=== PATIENT | male | born 1950 | race Caucasian/White ===

== ENCOUNTER → 2017-09-26 | Outpatient (CLI) | payer OTHER ==
[~2017-09-26] MED LIST: AMLODIPINE BESY10 MG PO; ASPIRIN81 MG PO; ATORVASTATIN CA20 MG PO; BYSTOLIC20 MG; DIGOXIN0.25 MG/5; DIGOXIN250 MCG PO; FINASTERIDE5 MG PO; FISH OIL 1,0001 EAC2 PO; LIPITOR20 MG; LOSARTAN-HCTZ1 EAC1 PO; METFORMIN HCL500 MG PO; METOPROLOL TART50 MG PO; OMEPRAZOLE40 MG PO; PRADAXA150 MG PO; TAMSULOSIN HCL0.4 MG PO; TRIBENZOR 40-11 EACH
--- NOTE | 2017-09-26 16:42 | Diagnostic Imaging Report ---
PROCEDURE:US RETROPERITONEAL ( KIDNEY ). COMPARISON:Patients [facility], US, US RETROPERITONEAL ( KIDNEY )., 09/01/2015, 15:54. INDICATIONS:Followup renal cysts TECHNIQUE: Johnson-scale and color sonographic images of the bilateral kidneys and bladder where obtained in transverse and longitudinal planes. FINDINGS: RIGHT KIDNEY: 13.1 cm, cortex 1.8 cm Cysts: 1.6 x 1.0 x 1.5 cm partially exophytic cystic, anechoic lesion in the interpolar region (previously measured 1.5 x 1.4 x 1.5 cm). Solid masses: None Stones: None Hydronephrosis: None Echogenicity: Normal LEFT KIDNEY: 12.8 cm, cortex 1.6 cm Cysts: 6.0 x 4.3 x 6.3 cm cystic, anechoic lesion in the inferolateral aspect (previously 5.5 x 4.2 x 5.1 cm.). 2.2 x 2.1 x 1.9 cm cystic, anechoic, partially exophytic lesion in the superior-medial aspect (previously measured 1.7 x 1.4 x 1.5 cm). 1.1 x 0.9 x 1.3 cm cystic, anechoic, partially exophytic lesion in the lateral interpolar region, which was not seen on the prior exam. Solid masses: None Stones: None Hydronephrosis: None Echogenicity: Normal Bladder: No focal lesions. Bilateral ureteral jets are identified. Prostate: 4.7 x 3.5 x 4.0 cm (estimated volume 33.5 mL). CONCLUSION: 1. Normal bilateral renal size and echogenicity. No hydronephrosis or obstruction. 2. Slight interval increase in size in 2.2 cm partially exophytic simple cyst in the superior-medial left kidney. A new 1.3 cm simple cyst is noted in the lateral interpolar left kidney. 3. Stable 1.6 and 6.0 cm right and left simple renal cysts, respectively. Daniel Sutherland M.D. Dictated by: Daniel Sutherland M.D. on 09/26/2017 at 16:45 Electronically approved by: Daniel Sutherland M.D. on 09/26/2017 at 16:45
== END ==
LOC: US 14:13
PROVIDERS: ATTEND Urology
DX: N20.0 Calculus of kidney (principal); N28.1 Cyst of kidney, acquired
CPT/HCPCS: 76770

== ENCOUNTER → 2019-04-18 | Outpatient (CLI) | payer MEDICARE, OTHER ==
--- NOTE | 2019-04-18 15:15 | Diagnostic Imaging Report ---
EXAM: Renal Ultrasound INDICATION: ^[id number] ^[id number] ^CYST OF KIDNEY COMPARISON: None TECHNIQUE: Transverse and longitudinal images of the kidneys and bladder were obtained. FINDINGS: Right Kidney: Length: 11.2 cm Appearance: Normal echogenicity. Collecting system: No hydronephrosis Stones: None Cyst/Mass: Lateral midpole simple cyst measures up to 1.6 cm. Left Kidney: Length: 11.3 cm Appearance: Normal echogenicity. Collecting system: No hydronephrosis Stones: None Cyst/Mass: Multiple simple cysts, the largest of which is exophytic at the left lower pole and measures up to 6.6 cm. Bladder: No mass or calculi. Bilateral ureteral jets visualized. Prevoid volume estimate of 152cc. The prostate measures 3.8 x 1.9 x 2.5 cm with estimated volume of 9 cc. 8 mm echogenic focus associated with the prostate likely represents a coarse calcification. IMPRESSION: No hydronephrosis or renal calculi. Bilateral renal cysts as above. Signed by: Haris Barnett MD on 04/18/2019 3:11 PM
== END ==
LOC: US 13:24
PROVIDERS: ATTEND Urology
DX: N28.1 Cyst of kidney, acquired (principal)
CPT/HCPCS: 76770

== ENCOUNTER → 2020-04-17 | Outpatient (CLI) | payer MEDICARE | LOC: US 08:37 | PROVIDERS: ATTEND Urology | DX: N28.1 Cyst of kidney, acquired (principal) | CPT/HCPCS: 76770 ==

== ENCOUNTER → 2021-09-13 | Outpatient (CLI) | payer MEDICARE | LOC: US 13:35 | PROVIDERS: ATTEND Urology | DX: N28.1 Cyst of kidney, acquired (principal) | CPT/HCPCS: 76770 ==

== ENCOUNTER → 2024-06-12 | Outpatient (REF) | payer MEDICARE | LOC: US 09:57 | PROVIDERS: ATTEND Specialist | DX: N17.9 Acute kidney failure, unspecified (principal) | CPT/HCPCS: 76770; 76857 ==

== ENCOUNTER 2025-01-16 07:21 | Inpatient (IN) | payer MEDICARE ==
[~2025-01-16] VITALS: Ht 170.2 cm; Wt 105.7 kg
[2025-01-16] VITALS (7 sets, daily range): BP systolic 128–150; BP diastolic 73–77; PULSE 73–95; RESP 18–20; TEMP 97.2–99.5; O2SAT 96–100
[2025-01-16 08:06] LABS: BASOPHILS % 0.2 % (0.0-1.0); EOSINOPHILS % 0.0 % (0.0-6.0); LYMPHOCYTES % 1.2 % (18.0-39.1); MONOCYTES % 4.1 % (4.4-11.3); NEUTROPHILS % 93.3 % (38.7-80.0); RED CELL DISTRIBUTION WIDTH 12.6 % (11.7-14.4)
[2025-01-16 08:13] LABS: EST GLOMERULAR FILTRATION RATE 40.0 ML/MIN (>=60)
[2025-01-16] MEDS ORDERED: ELIQUIS5 MG PO (08:20)
[2025-01-16] MEDS ORDERED: LASIX10 MG/ML PO (08:20)
[2025-01-16] MEDS ORDERED: SINEMET 25-1001 EACH PO (08:20)
[2025-01-16] MEDS ORDERED: DIGOXIN125 MCG PO (08:20)
[2025-01-16 08:22] LABS: INR 1.25
[2025-01-16] MEDS: DIGOXIN INJ 0.25 MG/ML 2 ML AMP IV ONE (08:22)
[2025-01-16] MEDS: ACETAMINOPHEN 325 MG TAB PO ONE (08:53)
[2025-01-16] MEDS: SODIUM CHLORIDE 0.9% 500ML 500 ML IV ONE (08:53)
[2025-01-16 09:01] LABS: LEUKOCYTE ESTERASE ,URINE NEGATIVE (NEGATIVE); PROTEIN,URINE DIPSTICK 2+ (NEGATIVE); URINE UROBILINOGEN 0.2 mg/dL (0.2 - 1)
[2025-01-16 09:05] LABS: EPITHELIAL CELLS,URINE FEW /LPF; WBC,URINE (MAN) 0-5 /HPF (0-5)
[2025-01-16 09:33] LABS: CORONAVIRUS COVID-19 AG NEGATIVE (NEGATIVE)
[2025-01-16] MEDS: CEFTRIAXONE 2 GM in SODIUM CHLORIDE 0.9% 100 ML IV ONE (09:48)
[2025-01-16] MEDS: SODIUM CHLORIDE 0.9% 1000ML 1,000 ML IV STA (09:51)
[2025-01-16] MEDS: Vancomycin IV 1 GM in SODIUM CHLORIDE 0.9% 250ML 250 ML IV ONE (13:28)
[2025-01-16] MEDS ORDERED: ONDANSETRON HCL INJ 2MG/ML 2ML 2 MG/ML VIAL IV PRN (20:00)
[2025-01-16] MEDS ORDERED: HYDRALAZINE HCL 20 MG/ML VIAL IV PRN (20:00)
[2025-01-16] MEDS ORDERED: DEXTROSE 50% SYRINGE 50 ML IV PRN (20:15)
[2025-01-16] MEDS ORDERED: HYDROCODONE/APAP 7.5MG-325MG 1 EA TAB PO PRN (20:15)
[2025-01-16] MEDS ORDERED: HYDROCODONE/APAP 10MG-325MG TAB PO PRN (20:15)
[2025-01-16] MEDS: INSULIN LISPRO 100 UNIT/1 ML 3ML VIAL SQ SCH (21:00)
[2025-01-16] MEDS: ATORVASTATIN 20 MG TAB PO SCH (21:30)
[2025-01-16] MEDS: CARBIDOPA/LEVODOPA 25/100 TAB PO SCH (21:30)
[2025-01-16] MEDS: ACETAMINOPHEN 325 MG TAB PO PRN (21:31)
[2025-01-17] VITALS (7 sets, daily range): BP systolic 112–138; BP diastolic 57–77; PULSE 65–78; RESP 17–20; TEMP 98.1–99; O2SAT 94–97
[2025-01-17 06:52] LABS: BASOPHILS % 0.1 % (0.0-1.0); EOSINOPHILS % 0.4 % (0.0-6.0); LYMPHOCYTES % 5.5 % (18.0-39.1); MONOCYTES % 8.4 % (4.4-11.3); NEUTROPHILS % 84.7 % (38.7-80.0); RED CELL DISTRIBUTION WIDTH 12.8 % (11.7-14.4)
[2025-01-17 07:21] LABS: CHOL/HDL RATIO 2.9 (3.9-4.7); EST GLOMERULAR FILTRATION RATE 19.0 ML/MIN (>=60); LDL CHOLESTEROL 57.0 MG/DL (60-130)
[2025-01-17] MEDS ORDERED: MAGNESIUM HYDROXIDE 30 ML UDC PO PRN (09:15)
[2025-01-17] MEDS: TAMSULOSIN HCL 0.4 MG CAP PO SCH ×2 (09:19→17:01)
[2025-01-17] MEDS: DIGOXIN 0.125 MG TAB PO SCH (09:19)
[2025-01-17] MEDS: FINASTERIDE 5 MG TAB PO SCH (09:20)
[2025-01-17] MEDS: METOPROLOL TARTRATE 50 MG TAB PO SCH (09:21)
[2025-01-17] MEDS: PANTOPRAZOLE SOD 40 MG TABEC PO SCH (09:21)
[2025-01-17] MEDS: APIXABAN 5 MG TABLET PO SCH (09:21)
[2025-01-17] MEDS: SENNA-S TABLET PO SCH (10:26)
[2025-01-17] MEDS: SODIUM CHLORIDE 0.9% 1000ML 1,000 ML IV SCH (10:26)
[2025-01-17] MEDS: POLYETHYLENE GLYCOL 3350 17 GM PACK PO SCH (10:26)
[2025-01-17] MEDS ORDERED: CARBIDOPA-LEVO1 EAC2 PO (15:51)
[2025-01-17] MEDS ORDERED: CARBIDOPA/LEVODOPA 25/250 TAB PO SCH (21:00)
[2025-01-17] MEDS: CARBIDOPA/LEVODOPA 25/250 TAB PO SCH (21:24)
[2025-01-17] MEDS: LACTATED RINGER'S 1,000 ML INJ SCH (21:33)
[2025-01-18] VITALS (8 sets, daily range): BP systolic 106–158; BP diastolic 55–85; PULSE 62–83; RESP 18–20; TEMP 98.1–98.9; O2SAT 94–97
[2025-01-18 08:19] LABS: BASOPHILS % 0.1 % (0.0-1.0); EOSINOPHILS % 0.6 % (0.0-6.0); LYMPHOCYTES % 5.3 % (18.0-39.1); MONOCYTES % 6.5 % (4.4-11.3); NEUTROPHILS % 86.6 % (38.7-80.0); RED CELL DISTRIBUTION WIDTH 12.8 % (11.7-14.4)
[2025-01-18 08:35] LABS: EST GLOMERULAR FILTRATION RATE 18.0 ML/MIN (>=60)
[2025-01-18] MEDS: Vancomycin IV 1 GM in SODIUM CHLORIDE 0.9% 250ML 250 ML IV SCH (09:58)
[2025-01-18] MEDS: LACTATED RINGER'S 1,000 ML INJ SCH (17:04)
[2025-01-19] VITALS (8 sets, daily range): BP systolic 107–138; BP diastolic 52–84; PULSE 54–89; RESP 18–20; TEMP 97.9–98.6; O2SAT 95–97
[2025-01-19 08:38] LABS: BASOPHILS % 0.4 % (0.0-1.0); EOSINOPHILS % 2.9 % (0.0-6.0); LYMPHOCYTES % 10.7 % (18.0-39.1); MONOCYTES % 10.4 % (4.4-11.3); NEUTROPHILS % 74.1 % (38.7-80.0); RED CELL DISTRIBUTION WIDTH 12.9 % (11.7-14.4)
[2025-01-19 09:03] LABS: EST GLOMERULAR FILTRATION RATE 24.0 ML/MIN (>=60)
[2025-01-19] MEDS: CHLORASEPTIC SPRAY 177 ML BTL MM PRN (11:58)
[2025-01-19] MEDS: LACTATED RINGER'S 1,000 ML INJ SCH (15:04)
[2025-01-20] VITALS (7 sets, daily range): BP systolic 108–172; BP diastolic 60–99; PULSE 53–87; RESP 17–20; TEMP 97.3–98.9; O2SAT 92–97
[2025-01-20 07:12] LABS: EST GLOMERULAR FILTRATION RATE 36.0 ML/MIN (>=60)
[2025-01-20] MEDS: METOPROLOL TARTRATE 50 MG TAB PO SCH (17:17)
[2025-01-21] VITALS (9 sets, daily range): BP systolic 108–182; BP diastolic 60–92; PULSE 51–82; RESP 17–20; TEMP 98.1–98.5; O2SAT 97–100
[2025-01-21 06:48] LABS: EST GLOMERULAR FILTRATION RATE 46.0 ML/MIN (>=60)
[2025-01-22] VITALS (7 sets, daily range): BP systolic 124–156; BP diastolic 76–94; PULSE 55–79; RESP 16–21; TEMP 97.8–98.7; O2SAT 96–100
[2025-01-22 06:56] LABS: EST GLOMERULAR FILTRATION RATE 52.0 ML/MIN (>=60)
[2025-01-22] MEDS: CHOLESTYRAMINE 4 GM PACKET PO PRN (10:18)
[2025-01-22 11:39] LABS: CDIFF AG QUIK CHEK NEGATIVE (NEGATIVE); CDIFF TOX QUIK CHEK NEGATIVE (NEGATIVE)
[2025-01-22] MEDS: FUROSEMIDE INJ 10 MG/ML 2 ML VIAL IV SCH (17:03)
[2025-01-22 18:21] LABS: CREATINE KINASE TOTAL 1236
[2025-01-23] VITALS (7 sets, daily range): BP systolic 127–147; BP diastolic 66–99; PULSE 69–81; RESP 17–20; TEMP 97.2–98.6; O2SAT 97–100
[2025-01-23 07:06] LABS: EST GLOMERULAR FILTRATION RATE 53.0 ML/MIN (>=60)
== END 2025-01-23 19:20 | disposition home health service (06) | DRG 872 ==
LOC: ER 07:25 → ERHOLD 09:54 → MED/SURG3 13:25
PROVIDERS: ADMIT Internal Medicine; ATTEND Internal Medicine
DX: A41.9 Sepsis, unspecified organism (principal); N39.0 Urinary tract infection, site not specified; M62.82 Rhabdomyolysis; N17.9 Acute kidney failure, unspecified; I48.19 Other persistent atrial fibrillation; N20.0 Calculus of kidney; N40.1 Benign prostatic hyperplasia with lower urinary tract symptoms; R33.8 Other retention of urine; N18.9 Chronic kidney disease, unspecified; I12.9 Hypertensive chronic kidney disease with stage 1 through stage 4 chronic kidney disease, or unspecified chronic kidney disease; E11.22 Type 2 diabetes mellitus with diabetic chronic kidney disease; K21.9 Gastro-esophageal reflux disease without esophagitis; R60.9 Edema, unspecified; M19.90 Unspecified osteoarthritis, unspecified site; Z11.52 Encounter for screening for COVID-19; G20.A1 Parkinson's disease without dyskinesia, without mention of fluctuations; E66.01 Morbid (severe) obesity due to excess calories; Z68.36 Body mass index [BMI] 36.0-36.9, adult; N28.1 Cyst of kidney, acquired; D63.1 Anemia in chronic kidney disease; E86.0 Dehydration; E78.00 Pure hypercholesterolemia, unspecified; Z79.01 Long term (current) use of anticoagulants; Z79.82 Long term (current) use of aspirin
CPT/HCPCS: 36415; 70450; 71045; 71250; 74176; 80048; 80053; 80061; 80162; 80202; 81001; 82550; 82552; 82948; 83605; 83735; 83880; 84484; 85025; 85610; 85730; 87040; 87071; 87086; 87205; 87324; 87449; 93005; 93306; 99252; 99284; J0696; J1938; J2470; J3373; J7030; J7040; J7050

== ENCOUNTER 2025-01-28 20:38 | Emergency (ER) | payer MEDICARE ==
[~2025-01-28] VITALS: Ht 167.6 cm; Wt 151.0 kg
[~2025-01-28 20:38] MED LIST changes: +CARBIDOPA-LEVO1 EAC2 PO; +DIGOXIN125 MCG PO; +ELIQUIS5 MG PO; +LASIX10 MG/ML PO; +SINEMET 25-1001 EACH PO
[2025-01-28 20:50] VITALS: TEMP 98.1
[2025-01-28 21:27] LABS: BASOPHILS % 0.4 % (0.0-1.0); EOSINOPHILS % 2.5 % (0.0-6.0); LYMPHOCYTES % 15.6 % (18.0-39.1); MONOCYTES % 6.0 % (4.4-11.3); NEUTROPHILS % 74.0 % (38.7-80.0); RED CELL DISTRIBUTION WIDTH 12.7 % (11.7-14.4)
[2025-01-28 21:43] LABS: EST GLOMERULAR FILTRATION RATE 45.0 ML/MIN (>=60)
[2025-01-28 21:50] LABS: LEUKOCYTE ESTERASE ,URINE NEGATIVE (NEGATIVE); PROTEIN,URINE DIPSTICK 1+ (NEGATIVE); URINE UROBILINOGEN 0.2 mg/dL (0.2 - 1)
[2025-01-28 21:56] LABS: EPITHELIAL CELLS,URINE FEW /LPF; HYALINE CASTS 0-1 (0-1)
[2025-01-28 22:00] VITALS: PULSE 74; RESP 17
[2025-01-28] MEDS ORDERED: CEFDINIR300 MG PO (22:03)
[2025-01-28] MEDS: CEFDINIR 300 MG CAP PO ONE (22:20)
[2025-01-28 22:27] VITALS: BP 130/71; PULSE 74; RESP 19; O2SAT 99
== END 2025-01-28 22:20 | disposition home or self-care (01) ==
LOC: ER 21:25
DX: R33.9 Retention of urine, unspecified (principal); N39.0 Urinary tract infection, site not specified; I12.9 Hypertensive chronic kidney disease with stage 1 through stage 4 chronic kidney disease, or unspecified chronic kidney disease; E11.22 Type 2 diabetes mellitus with diabetic chronic kidney disease; E11.65 Type 2 diabetes mellitus with hyperglycemia; N18.9 Chronic kidney disease, unspecified; E78.5 Hyperlipidemia, unspecified; K21.9 Gastro-esophageal reflux disease without esophagitis; M19.90 Unspecified osteoarthritis, unspecified site; G20.A1 Parkinson's disease without dyskinesia, without mention of fluctuations
CPT/HCPCS: 36415; 51700; 80048; 81001; 85025; 87086; 99284